=== PATIENT | male | born 1965 | race Caucasian/White ===

== ENCOUNTER 2024-04-06 08:26 | Day surgery (SDC) | payer MEDICAID, SELFPAY ==
[2024-04-06 08:45] VITALS: BP 139/84; PULSE 63; RESP 18; TEMP 36.1; O2SAT 98; BMI 29.9
--- NOTE | 2024-04-06 09:20 | LES_PTH ---
PATIENT: MARIANNE CHOW [place]: [facility] [place][id number] AGE/SX: 58/M ROOM: RE04/06/[address]: Dr. Bre Fernández MD : 1965 BED: DIS: 04/06/2024 SPEC #: [id number] RECD: 04/06/24 11:45 STATUS: MARISELA JAE #: [id number] MARICEL: 04/06/24 09:[address]: Bre Fernández DEPT: SURGICAL PATHOLOGY RECD BY: Sylvester Arreola Tissues: Skin of face, NOS Procedures: Frozen Section (charge) Surgery Specimen Level IV HEADER OPERATION: Excision basal cell carcinoma right protestant with frozen section PRE-OP DIAGNOSIS: Basal cell carcinoma, right protestant TISSUE SUBMITTED: Basal cell carcinoma, right protestant FROZEN SECTION DIAGNOSIS Skin lesion of right protestant, excision: 1- Changes of previous biopsy. 2- No evidence of carcinoma. AM.mr 04/06/2024 MICROSCOPIC DIAGNOSIS Skin lesion of right protestant, excision: Negative for carcinoma. Chronic inflammation, foreign body giant cell reaction and granulation tissue reaction, consistent with previous biopsy site. See comment. 04/09/2024 COMMENT Clinical correlation and appropriate follow up are necessary. MICROSCOPIC DESCRIPTION Slides are reviewed. GROSS DESCRIPTION Received fresh for frozen section consultation labeled with the patient's name is a specimen designated Right protestant lesion. The specimen consists of a discoid fragment of dykes skin measuring 1.0 x 1.0 x 0.2cm. The specimen has been oriented and is differentially inked as follows: 12o'clock- blue, 6o'clock- black, 3 o'clock- red, 9- o'clock- orange. The specimen is serially sectioned and totally submitted for frozen section consultation in one block. 04/06/2024 TC:5 CPT:98192,52584
--- NOTE | 2024-04-06 09:22 | PCM.HP.BLA ---
History and Physical Date of Admission: 04/06/24 The patient is examined and there are no changes to the H&P of 04/03/24. Pt for excision with FS of a BCC of his right rastafari. Informed consent was obtained. Assessment & Plan Assessment/Plan (1) BCC (basal cell carcinoma), face: PLAN: Plan For excision of BCC rastafari
[2024-04-06 09:29] VITALS: BP 109/84; O2SAT 99
[2024-04-06 09:30] VITALS: BP 114/69; BP 125/76; BP 125/77; O2SAT 100; O2SAT 97; O2SAT 98; O2SAT 99
[2024-04-06] MEDS: Lidocaine 1% /Epi 1:100 9 ML, Sodium Bicarbonate 1 MEQ OPERA.SITE (09:41)
--- NOTE | 2024-04-06 10:17 | DCINST_ITS ---
Discharge Instructions Dressing / Incision Additional Dressing/Incision Instructions:: Keep your back elevated (recliner position) for the next 2-3 nights to reduce bruising and swelling. Take the oral antibiotic (Keflex) 2 times a day until finished. Keep the Steri-Strips dry?-leave these in place until seen in the office. (If the tape falls off, apply antibiotic ointment 1 time a day.) Follow Up Care Please Follow Up With: Bre Fernández MD When: 1 to 2 weeks Test Results: Test results from this visit will be discussed in further detail at your follow- up appointment, if applicable. Discharge Plan Admission Attending Provider: Bre Fernández Primary Care Provider: PATRICIA MARTIN Instructions Print Language: Grenadian Discharge Orders/Prescriptions Prescriptions: New cephalexin 500 mg capsule 500 mg PO BID 5 Days Qty: 10 0RF Referrals / Follow Up: PATRICIA MARTIN [Other] Disposition Disposition (needs filled in before D/C Order can be placed): Home, Self Care
--- NOTE | 2024-04-06 10:20 | PCM.OPRPT ---
Problems Associated Problem List Diagnoses (1) BCC (basal cell carcinoma), face: Report of Operation Date of Procedure: 04/06/24 Pre-Operative Diagnosis: Biopsy-proven BCC right tenriism Post-Operative Diagnosis: Same Surgery/Procedure Performed:: Excision BCC right tenriism (2 cm) with frozen section and intermediate closure Surgeon: Bre Fernández Type of Anesthesia: Local Specimen's removed: BCC forehead Estimated Blood Loss (mL): Minimal Description of Procedure: The patient presents with a biopsy-proven BCC of the right tenriism. He presents for excision of the site with frozen section evaluation of margins. The patient is brought to the operating room and placed on the operating room table in supine position. The right face is prepped and draped in the usual sterile fashion. 1% Xylocaine with epinephrine buffered with sodium bicarb is used for local anesthetic. Following this, the site is excised maintaining orientation to be sent to pathology. The specimen spots passed off the field. Frozen section reveals clear margins and therefore the wound is closed. After ensuring hemostasis, the subcutaneous tissue was closed with Vicryl sutures. Skin edges were approximated with a running subcuticular Vicryl suture. Further reinforcement the closure is done with a running silk suture. Dermabond and Steri-Strips are placed on the site. He tolerated the procedure well and was taken to the recovery area in an awake and stable condition. Needle and sponge counts are correct. Complications None Admit VTE Documentation VTE Mechan Device Prophylaxis: None Reason prophylaxis not ordered:: Treatment Not Indicated
[2024-04-06 10:36] VITALS: BP 122/62; BP 139/84; PULSE 55; RESP 17; TEMP 36.3; O2SAT 99
== END 2024-04-06 10:47 | disposition home or self-care (01) ==
LOC: SDC 08:28 → AC 09:14
PROVIDERS: Referring Provider Plastic Surgery; Visit Provider Plastic Surgery
PROC: (CPT 11442; principal; 2024-04-06 09:10)
DX: L92.3 Foreign body granuloma of the skin and subcutaneous tissue (principal); I10 Essential (primary) hypertension
CPT/HCPCS: 11442; 12051; 88305; 88331